=== PATIENT | female | born 1975 | race Caucasian/White ===

== ENCOUNTER → 2016-03-06 | Outpatient (CLI) | payer SELFPAY ==
[~2016-03-06] MED LIST: ALIGN4 MG PO; CUBICIN 500 MG500 MG IV; DYAZIDE CAP (M1 EACH PO; FERROUS SULFAT200 M1 PO; HYDROXYZINE HYD10 MG PO; K-DUR 20MEQ TA20 MEQ PO; NATURE-THROID130 MG PO; PANTOPRAZOLE SO40 MG PO; PHENYTOIN 100M100 MG PO; PROPAFENONE HC150 MG PO; PROPAFENONE HY150 MG PO; [UNRECOGNIZED DRUG - OTHER] PO; [UNRECOGNIZED DRUG - OTHER] PO; [UNRECOGNIZED DRUG - OTHER] PO; [UNRECOGNIZED DRUG - OTHER] PO; [UNRECOGNIZED DRUG - OTHER] PO
== END ==
LOC: RT 08:15
DX: R07.9 Chest pain, unspecified (principal); R00.2 Palpitations; I10 Essential (primary) hypertension; Z82.49 Family history of ischemic heart disease and other diseases of the circulatory system